=== PATIENT | female | born 1985 | race Caucasian/White ===

== ENCOUNTER 2017-08-23 15:48 | Emergency (ER) | payer BC ==
[~2017-08-23] VITALS: Ht 167.6 cm; Wt 92.5 kg
[2017-08-23 17:10] VITALS: BP 124/80
== END 2017-08-23 17:11 | disposition home or self-care (01) ==
LOC: ER 15:50
DX: R10.84 Generalized abdominal pain (principal); Z88.5 Allergy status to narcotic agent
CPT/HCPCS: A4606; Z7502; Z7610